=== PATIENT | female | born 1965 | race African-American/Black ===

== ENCOUNTER 2022-10-24 14:31 | Emergency (ER) | payer OTHER, MEDICAID ==
[~2022-10-24] VITALS: Ht 165.1 cm; Wt 73.0 kg
[2022-10-24 14:37] VITALS: BP 155/94
[2022-10-24] MEDS ORDERED: MAGNESIUM/ALUMINUM HYDROXIDE/SIMETHICONE 30ML UDC PO STA (14:49)
[2022-10-24 15:33] LABS: BASOPHILS % 0.4 % (0.0-2.0); EOSINOPHILS % 1.1 % (0.0-5.0); HEMATOCRIT. 35.7 % (36.0-48.0); HEMOGLOBIN. 12.6 g/dL (12.0-16.0); LYMPHOCYTES % 41.4 % (20.0-50.0); MEAN CORPUSCULAR HEMOGLOBIN 32.4 pg (28.0-32.0); MEAN CORPUSCULAR VOLUME 91.8 fL (81.0-99.0); MEAN PLATELET VOLUME 7.5 fl (7.4-10.4); MONOCYTES % 6.4 % (2.0-8.0); NEUTROPHILS % 50.7 % (40.0-76.0); PLATELET 322 x1000/uL (130-400); RED BLOOD CELL COUNT 3.89 mill/uL (4.2-5.4); RED CELL DISTRIBUTION WIDTH 15.4 % (11.6-14.6)
[2022-10-24 15:50] LABS: CHLORIDE 106 mEq/L (98-107)
[2022-10-24 16:13] LABS: CLARITY URINE TURBID (CLEAR); COLOR URINE DARK YELLOW (YELLOW); KETONES URINE 1+ (NEGATIVE); LEUKOCYTE ESTERASE URINE NEGATIVE (NEGATIVE); NITRITE URINE NEGATIVE (NEGATIVE); OCCULT BLOOD URINE NEGATIVE (NEGATIVE); PH URINE 5.5 (4.5-8.0); PROTEIN URINE 2+ (NEGATIVE)
[2022-10-24] MEDS ORDERED: METR-167 MT (17:15)
[2022-10-24] MEDS ORDERED: AMOX1TAB16 MT (17:15)
[2022-10-24] MEDS ORDERED: IBUP-2029 MT (17:15)
== END 2022-10-24 17:37 | disposition home or self-care (01) ==
LOC: ER 14:31
DX: K57.92 Diverticulitis of intestine, part unspecified, without perforation or abscess without bleeding (principal); I95.9 Hypotension, unspecified
CPT/HCPCS: 36415; 74176; 80053; 81003; 81025; 85025; 99284